=== PATIENT | male | born 1955 | race African-American/Black ===

== ENCOUNTER 2022-09-30 09:12 | Outpatient (CLI) | payer MEDICARE ==
[2022-09-30] MEDS ORDERED: Iopamidol 370 76% 100 ML VIAL ONE (12:01)
== END 2022-09-30 09:13 | disposition home or self-care (01) ==
LOC: CT 09:12
PROVIDERS: ATTEND Specialist
DX: I71.40 Abdominal aortic aneurysm, without rupture, unspecified (principal)
CPT/HCPCS: 74174; 82565; Q9967